=== PATIENT | male | born 1960 | race Caucasian/White ===

== ENCOUNTER 2021-07-20 12:56 | Observation (INO) ==
[2021-07-20] MEDS ORDERED: Isovue-370 500 ML BOTTLE IVP ONE (14:01)
[2021-07-20 14:10] LABS: Hematocrit 35.5 % (37.5-50.1); Mean Corpuscular Hemoglobin 27.1 pg (28.0-33.3); Mean Corpuscular Volume 87.4 fL (83.0-100.0); Mean Platelet Volume 9.5 fL (9.4-12.4); Platelet Count 181 K/mcL (140-400); Red Blood Count 4.06 M/mcL (4.19-5.50); Red Cell Distribution Width 16.6 % (11.5-14.5); White Blood Count 10.9 K/mcL (4.3-11.1)
[2021-07-20] MEDS ORDERED: Naloxone 0.4 MG/ML INJ IVP PRN (14:25)
[2021-07-20] MEDS ORDERED: Ondansetron 4 MG/2 ML VIAL IVP PRN (14:25)
[2021-07-20 14:28] LABS: BUN/Creatinine Ratio 13 (6-26); Blood Urea Nitrogen 13 mg/dL (8-23); Calcium 9.1 mg/dL (8.6-10.3); Carbon Dioxide 26 mEq/L (23-29); Chloride 105 mEq/L (98-107); Glucose 91 mg/dL (70-105); Osmolality,Calculated 284 (280-300); Potassium 4.8 mEq/L (3.5-5.1); Sodium 137 mEq/L (136-145); eGFR For African Americans > 60 (> 60); eGFR For Non-African Americans > 60 (> 60)
[2021-07-20] MEDS ORDERED: EPINEPHrine 1 MG/ML VIAL IM PRN (15:49)
[2021-07-20] MEDS ORDERED: D5% in 0.9% NACL 1,000 ML IVC SCH (17:00)
[2021-07-20] MEDS ORDERED: *HR* Metoprolol 5 MG/5 ML VIAL IVP PRN (17:04)
[2021-07-20 18:21] LABS: Complement C3 122 mg/dL (87-200)
[2021-07-20] MEDS: methylPREDNISolone 125 MG/2 ML VIAL IVP SCH (19:52)
[2021-07-20] MEDS: Famotidine 20 MG/2 ML VIAL IVP SCH (19:53)
[2021-07-21 00:51] LABS: Basophils % 0.1 %; Hemoglobin 11.1 g/dL (12.9-16.9); Immature Granulocytes % 0.1 % (0-4); Lymphocytes # 8.5 K/mcL (0.6-4.6); Lymphocytes % 60.5 %; Mean Corpuscular HGB Conc 31.7 g/dL (31.6-35.5); Mean Corpuscular Hemoglobin 27.8 pg (28.0-33.3); Mean Corpuscular Volume 87.5 fL (83.0-100.0); Mean Platelet Volume 9.6 fL (9.4-12.4); Monocytes # 1.5 K/mcL (0.0-1.3); Monocytes % 10.3 %; Neutrophils # 4.1 K/mcL (1.6-8.9); Platelet Count 193 K/mcL (140-400); Red Cell Distribution Width 16.4 % (11.5-14.5); White Blood Count 14.1 K/mcL (4.3-11.1)
[2021-07-21 01:00] LABS: INR 1.2; Prothrombin Time 13.7 Seconds (9.4-12.1)
[2021-07-21 01:11] LABS: BUN/Creatinine Ratio 15 (6-26); Blood Urea Nitrogen 14 mg/dL (8-23); Calcium 9.2 mg/dL (8.6-10.3); Carbon Dioxide 24 mEq/L (23-29); Chloride 105 mEq/L (98-107); Glucose 147 mg/dL (70-105); Magnesium 1.7 mg/dL (1.6-2.6); Osmolality,Calculated 287 (280-300); Potassium 4.4 mEq/L (3.5-5.1); Sodium 137 mEq/L (136-145); eGFR For African Americans > 60 (> 60); eGFR For Non-African Americans > 60 (> 60)
[2021-07-21] MEDS: methylPREDNISolone 125 MG/2 ML VIAL IVP SCH (06:02)
[2021-07-21] MEDS: Famotidine 20 MG/2 ML VIAL IVP SCH ×2 (06:03→17:15)
[2021-07-21] MEDS: *HR* Enoxaparin 40 MG/0.4 ML SYRINGE SQ SCH (06:13)
[2021-07-21] MEDS ORDERED: Acetaminophen IV 1,000 MG/100 ML BAG IVPB ONE (07:40)
[2021-07-21] MEDS ORDERED: Temazepam 15 MG CAPSULE PO PRN (07:41)
[2021-07-21] MEDS ORDERED: Loratadine 10 MG TABLET PO PRN (14:38)
[2021-07-21] MEDS ORDERED: *HR* OxyCODONE Immed Rel 5 MG TABLET PO PRN (14:39)
[2021-07-21] MEDS: carvediloL 6.25 MG TABLET PO SCH (17:15)
[2021-07-21] MEDS: MethylPREDNISolone 40 MG/ML VIAL IVP SCH (17:15)
[2021-07-22 03:12] LABS: Basophils % 0.1 %; Hematocrit 33.1 % (37.5-50.1); Hemoglobin 10.4 g/dL (12.9-16.9); Immature Granulocytes % 0.4 % (0-4); Lymphocytes # 8.8 K/mcL (0.6-4.6); Lymphocytes % 46.3 %; Mean Corpuscular HGB Conc 31.4 g/dL (31.6-35.5); Mean Platelet Volume 10.4 fL (9.4-12.4); Monocytes % 10.7 %; Neutrophils # 8.1 K/mcL (1.6-8.9); Platelet Count 190 K/mcL (140-400); Red Blood Count 3.72 M/mcL (4.19-5.50); Red Cell Distribution Width 16.8 % (11.5-14.5); Segmented Neutrophils % 42.5 %
[2021-07-22 03:39] LABS: BUN/Creatinine Ratio 24 (6-26); Blood Urea Nitrogen 24 mg/dL (8-23); Calcium 9.3 mg/dL (8.6-10.3); Carbon Dioxide 24 mEq/L (23-29); Chloride 106 mEq/L (98-107); Glucose 114 mg/dL (70-105); Osmolality,Calculated 291 (280-300); Potassium 4.8 mEq/L (3.5-5.1); Sodium 138 mEq/L (136-145); eGFR For African Americans > 60 (> 60); eGFR For Non-African Americans > 60 (> 60)
[2021-07-22] MEDS: MethylPREDNISolone 40 MG/ML VIAL IVP SCH (05:36)
[2021-07-22] MEDS: Famotidine 20 MG/2 ML VIAL IVP SCH (05:36)
[2021-07-22] MEDS: *HR* Enoxaparin 40 MG/0.4 ML SYRINGE SQ SCH (05:41)
[2021-07-22 06:38] VITALS: BP 140/77; PULSE 65; TEMP 98.4; O2SAT 99
[2021-07-22] MEDS: carvediloL 6.25 MG TABLET PO SCH (07:33)
[2021-07-22] MEDS ORDERED: predniSONE 20 MG TABLET PO SCH ×2 (09:00)
[2021-07-22] MEDS ORDERED: Famotidine 20 MG TABLET PO SCH (09:00)
[2021-07-24] MEDS ORDERED: predniSONE 10 MG TABLET PO SCH (09:00)
== END 2021-07-22 10:38 | disposition home or self-care (01) ==
LOC: EMEROOARM 12:56 → 3NENU 12:56 → SUATTDRO 15:13 → 3NENU 15:29
PROVIDERS: ADMIT Pharmacist; ATTEND Pharmacist